=== PATIENT | female | born 1960 | race Caucasian/White ===

== ENCOUNTER → 2019-08-06 14:06 | Outpatient (CLI) | payer BC, SELFPAY ==
--- NOTE | ~2019-08-06 | XR_ITS ---
EXAMINATION: XR ribs BI 3V w CXR 2V EXAM DATE: 08/06/2019 15:46 INDICATION: Posterior rib pain bilaterally for one day. Shortness of breath intermittently for one mo nth. TECHNIQUE: Frontal projection of the upper left ribs, frontal projection of the lower left ribs, obli que projection of the left ribs. Frontal projection of the upper right ribs, frontal projection of t he lower right ribs, oblique projection of the right ribs, frontal and lateral chest x-ray(s) for int erpretation. Comparison is made to prior examination from 02/27/2019. FINDINGS: There are no displaced acute rib fractures identified. There are no osteoblastic or osteoly tic lesions identified. No confluent consolidation, pneumothorax or pleural effusion suspected. Card iomediastinal silhouette is normal. Mild hyperinflation. There is a wire-like foreign body measuring about 1 cm in length, appears to be in the midline subcut aneous tissues near the xiphoid. This is unchanged compared to prior study. IMPRESSION: Small incidental wire-like foreign body. Otherwise unremarkable exam. Reviewed, dictated and finalized at location A.
== END ==
PROVIDERS: PCP Family Medicine; Visit Provider Family Medicine
DX: R52 Pain, unspecified (principal)
CPT/HCPCS: 71046; 71110

== ENCOUNTER → 2020-01-16 11:45 | Outpatient (CLI) | payer BC, SELFPAY ==
--- NOTE | ~2020-01-16 | XR_ITS ---
EXAMINATION: XR hand LT 2V, XR hand RT 2V DATE: 01/16/2020 12:09 INDICATION: Polyarthralgia and erythema at the joints of the bilateral hands. TECHNIQUE: 1. Posteroanterior and lateral views of the left hand were obtained. 2. Posteroanterior and lateral views of the right hand were obtained. 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 Bone alignment is otherwise n ormal at both hands and wrists. No acute fracture. Mild osteoarthritis at the bilateral first interph alangeal and right fifth distal interphalangeal joints. Remaining joint spaces are relatively preserv ed. No erosions to suggest an inflammatory arthritis. There is soft tissue swelling about several of the bilateral proximal interphalangeal joints as well as the at the radial aspect of the left second metacarpophalangeal joint. IMPRESSION: 1. Mild osteoarthritis at the bilateral first interphalangeal and right fifth distal interphalangeal joints. No erosions to suggest an inflammatory arthritis. Reviewed, dictated and finalized at location B. IMPRESSION: 1. Mild osteoarthritis at the bilateral first interphalangeal and right fifth d istal interphalangeal joints. No erosions to suggest an inflammatory arthritis.
== END ==
PROVIDERS: PCP Family Medicine; Visit Provider Internal Medicine Rheumatology
DX: R53.83 Other fatigue (principal); R70.0 Elevated erythrocyte sedimentation rate; M19.042 Primary osteoarthritis, left hand; M19.041 Primary osteoarthritis, right hand
CPT/HCPCS: 73120

== ENCOUNTER 2022-01-25 13:50 | Outpatient (CLI) | payer OTHER, SELFPAY ==
--- NOTE | ~2022-01-25 | US_ITS ---
US abdomen limited INDICATION: Right upper quadrant pain. Jaundice. PROCEDURE: Realtime right upper abdominal ultrasound. COMPARISON: No prior studies for comparison. FINDINGS: The pancreas is normal without focal mass or pancreatic ductal dilation. Liver echotexture is normal without focal mass or intrahepatic biliary dilatation. There is normal directional flow i n the portal vein. The gallbladder is normal without stones, gallbladder wall thickening or pericholecystic fluid. Comm on bile duct measures 3 mm. No sonographic Wiggins's sign. IMPRESSION: 1: Normal limited abdominal ultrasound. Reviewed, dictated and finalized at location B.
== END 2022-01-25 13:51 | disposition home or self-care (01) ==
PROVIDERS: PCP Emergency Medicine; Visit Provider Emergency Medicine
DX: R17 Unspecified jaundice (principal)
CPT/HCPCS: 76705

== ENCOUNTER 2022-03-01 15:14 | Outpatient (CLI) | payer OTHER, SELFPAY ==
[2022-03-06 09:31] LABS: Vitamin B2 27.9 nmol/L (6.2-39.0)
== END 2022-03-01 15:15 | disposition home or self-care (01) ==
LOC: ANHGOSHLAB 15:15
PROVIDERS: PCP Emergency Medicine; Visit Provider Emergency Medicine
DX: D53.9 Nutritional anemia, unspecified (principal); K13.0 Diseases of lips
CPT/HCPCS: 36415; 82607; 84252

== ENCOUNTER 2022-04-21 14:05 | Outpatient (CLI) | payer OTHER, SELFPAY ==
--- NOTE | ~2022-04-21 | MM_ITS ---
EXAMINATION: MM screening [facility] BI w gab HISTORY: Screening mammogram TECHNIQUE: Craniocaudal and mediolateral oblique 3-D tomosynthesis images were obtained and synthetic 2-D images were generated. CAD analysis was submitted and interpreted. COMPARISON: 08/30/2018 11/14/2014, 05/25/2013 BREAST PARENCHYMAL COMPOSITION: The breasts are heterogeneously dense, which may obscure small masses . FINDINGS: No suspicious mass, calcification, or architectural distortion are identified in either camilo ast to suggest malignancy. There has been no suspicious interval change. IMPRESSION: 1. No mammographic evidence of malignancy. 2. Recommend routine screening mammography in one year. BI-RADS Category 1: Negative Reviewed, dictated and finalized at location A. 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
== END 2022-04-21 14:06 | disposition home or self-care (01) ==
PROVIDERS: PCP Emergency Medicine; Visit Provider Obstetrics & Gynecology
DX: Z12.31 Encounter for screening mammogram for malignant neoplasm of breast (principal)
CPT/HCPCS: 77063; 77067

== ENCOUNTER 2022-09-04 16:44 | Outpatient (CLI) | payer OTHER, SELFPAY ==
--- NOTE | ~2022-09-04 | XR_ITS ---
Right wrist Technique: PA, oblique, lateral, and ulnar deviation views were obtained. Clinical History: Pain COMPARISON: 01/16/2020 Findings: No acute fracture or dislocation is seen. There is chronic apparent bony bridging from the triquetrum to the pisiform, unchanged. Soft tissues are unremarkable. Impression: No acute abnormality. Chronic bony excrescence which appears to arise from triquetrum, possibly bridging to the pisiform. T his is stable from prior exam. Reviewed, dictated and finalized at location M. Impression: No acute abnormality. Chronic bony excrescence which appears to arise from triquetrum, possibly bridg ing to the pisiform. This is stable from prior exam.
== END 2022-09-04 16:45 | disposition home or self-care (01) ==
LOC: CHSIMG 16:47
PROVIDERS: PCP Emergency Medicine; Visit Provider Physician Assistant
DX: M25.531 Pain in right wrist (principal)
CPT/HCPCS: 73110

== ENCOUNTER 2022-09-17 12:32 | Outpatient (CLI) | payer OTHER, SELFPAY ==
--- NOTE | ~2022-09-17 | CT_ITS ---
EXAMINATION: CT wrist RT wo con DATE: 09/17/2022 12:52 INDICATION: Right wrist pain. TECHNIQUE: Computed tomography (CT) of the right wrist was performed without intravenous contrast. Au tomated exposure control and iterative reconstruction technique were employed. The dose-length produc t was 374.16 mGy-cm. COMPARISON: Right wrist radiographs 09/04/2022 FINDINGS: Bone alignment is normal. No acute fracture. There is heterotopic ossification distal to ul caryn styloid. There is mild osteoarthritis of radioscaphoid joint and lunotriquetral joint. There is s evere osteoarthritis of pisotriquetral joint. There is mild osteoarthritis of triscaphe joint and fir st carpometacarpal joint. There is moderate osteoarthritis of first metacarpophalangeal joint. IMPRESSION: 1. Polyarticular osteoarthritis. Reviewed, dictated and finalized at location A.
== END 2022-09-17 12:33 | disposition home or self-care (01) ==
PROVIDERS: PCP Emergency Medicine; Visit Provider Physician Assistant
DX: M25.531 Pain in right wrist (principal); M19.031 Primary osteoarthritis, right wrist
CPT/HCPCS: 73200

== ENCOUNTER 2022-11-02 14:08 | Outpatient (RCR) | payer OTHER, SELFPAY ==
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
== END 2022-11-02 19:00 | disposition home or self-care (01) ==
LOC: CHSOT 14:08
PROVIDERS: Visit Provider Plastic Surgery
DX: M62.838 Other muscle spasm (principal); M62.81 Muscle weakness (generalized)
CPT/HCPCS: 97110; 97165

== ENCOUNTER 2023-02-10 14:27 | Outpatient (CLI) | payer OTHER, SELFPAY ==
[2023-02-10 18:45] LABS: Iron 93 ug/dL (37-170)
[2023-02-10 18:55] LABS: Percent Iron Saturation 27 % (20-50)
[2023-02-16 02:25] LABS: Vitamin A 57 mcg/dL (38-98)
== END 2023-02-10 14:28 | disposition home or self-care (01) ==
LOC: ANHGOSHLAB 14:30
PROVIDERS: PCP Emergency Medicine; Visit Provider Emergency Medicine
DX: D64.9 Anemia, unspecified (principal); T45.2X1A Poisoning by vitamins, accidental (unintentional), initial encounter
CPT/HCPCS: 36415; 82728; 83540; 83550; 84590

== ENCOUNTER 2023-04-20 14:03 | Outpatient (CLI) | payer OTHER, SELFPAY ==
--- NOTE | 2023-04-20 14:30 | NEURO_ITS ---
Impression: # Complains of right forearm discomfort and pain. # Normal Nerve Conduction Study. No evidence of Carpal Tunnel Syndrome or ulnar neuropathy. # Normal needle/EMG exam. # Clinical correlation recommended. Nerve Conduction Studies Anti Sensory Summary Table Stim Site NR Peak (ms) P-T Amp (?V) Site1 Site2 Delta-P (ms) Dist (cm) Lopez (m/s) Right Median Anti Sensory (2-3nd Digit) Wrist 2.8 77.1 Wrist 2-3nd Digit 2.8 14.0 50 Wrist 3.1 77.0 Wrist 2-3nd Digit 2.8 14.0 50 Right Radial Anti Sensory (Base 1st Digit) Wrist 2.7 23.1 Wrist Base 1st Digit 2.7 0.0 Right Ulnar Anti Sensory (5th Digit) Wrist 2.9 61.7 Wrist 5th Digit 2.9 14.0 48 Motor Summary Table Stim Site NR Onset (ms) O-P Amp (mV) Site1 Site2 Delta-0 (ms) Dist (cm) Lopez (m/s) Right Median Motor (Abd Poll Brev) Wrist 3.3 3.9 Elbow Wrist 4.6 27.0 59 Elbow 7.9 3.4 Right Ulnar Motor (Abd Dig Minimi) Wrist 2.7 4.6 A Elbow Wrist 4.6 27.0 59 A Elbow 7.3 4.7 F Wave Studies NR F-Lat (ms) L-R F-Lat (ms) Right Median (Mrkrs) (Abd Poll Brev) 26.84 Right Ulnar (Mrkrs) (Abd Dig Min) 27.25 EMG Side Muscle Nerve Root Ins Act Fibs Amp Dur Recrt Comment Right 1stDorInt Ulnar C8-T1 Nml Nml Nml Nml Nml Right Ext Indicis Radial (Post Int) C7-8 Nml Nml Nml Nml Nml Right Ext Digitorum Radial (Post Int) C7-8 Nml Nml Nml Nml Nml Right BrachioRad Radial C5-6 Nml Nml Nml Nml Nml Right PronatorTeres Median C6-7 Nml Nml Nml Nml Nml Right Abd Poll Brev Median C8-T1 Nml Nml Nml Nml Nml Right Biceps Musculocut C5-6 Nml Nml Nml Nml Nml Right Brachialis Musculocut C5-6 Nml Nml Nml Nml Nml Right Triceps Radial C6-7-8 Nml Nml Nml Nml Nml MTDD
== END 2023-04-20 14:04 | disposition home or self-care (01) ==
LOC: ANHNEURO 14:05
PROVIDERS: PCP Emergency Medicine; Visit Provider Emergency Medicine
DX: M79.641 Pain in right hand (principal)
CPT/HCPCS: 95886; 95909

== ENCOUNTER 2023-05-06 14:07 | Outpatient (CLI) | payer OTHER, SELFPAY ==
--- NOTE | ~2023-05-06 | CT_ITS ---
EXAMINATION: CT abdomen wo con DATE: 05/06/2023 14:54 INDICATION: Early satiety TECHNIQUE: Computed tomography (CT) of the abdomen was performed without intravenous contrast. Automa fox exposure control and iterative reconstruction technique were employed. Exam dose: 167.89 mGy-cm total exam DLP. COMPARISON: 01/21/2022 Limited abdominal ultrasound examination, reported normal 03/21/2019 CT abdomen pelvis FINDINGS: The lung bases are clear of infiltrate or consolidation. Normal heart size. No pericardial or pleural effusion. The liver, gallbladder, bile ducts, spleen, pancreas, pancreatic duct, and adrenal glands and kidneys and urinary bladder are unremarkable. No urinary tract calculus or hydroureteronephrosis is noted. Suture lines are noted in the colon. As a prominent amount of fecal material within the colon. No bow el obstruction is evident. No intraperitoneal free air. The uterus and adnexal areas appear unremarka ble. Normal caliber of the abdominal aorta. No peritoneal or retroperitoneal or pelvic mass lesion or keshia opathy or ascites is noted. Included skeletal structures are unremarkable. IMPRESSION: Postoperative change of the colon Reviewed, dictated and finalized at Location A. Reviewed, dictated and finalized at location B. CULTURE RESEARCH DIRECTOR
== END 2023-05-06 14:08 | disposition home or self-care (01) ==
LOC: CHSIMG 14:09
PROVIDERS: PCP Emergency Medicine; Visit Provider Emergency Medicine
DX: D46.9 Myelodysplastic syndrome, unspecified (principal); R10.12 Left upper quadrant pain; R10.9 Unspecified abdominal pain; R63.4 Abnormal weight loss; R68.81 Early satiety; Z98.890 Other specified postprocedural states
CPT/HCPCS: 74150

== ENCOUNTER 2023-05-09 09:00 | Outpatient (RCR) | payer OTHER, SELFPAY ==
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
== END 2023-06-01 20:00 | disposition home or self-care (01) ==
LOC: CHSOT 09:00
PROVIDERS: PCP Emergency Medicine; Visit Provider Emergency Medicine
DX: G90.511 Complex regional pain syndrome I of right upper limb (principal)
CPT/HCPCS: 97014; 97110; 97140; 97530; G0283

== ENCOUNTER 2023-05-11 12:43 | Outpatient (CLI) | payer OTHER, SELFPAY ==
[2023-05-11 15:38] LABS: Basophils Percent Auto 0.4 % (0.2-1.2); Eosinophils Percent Auto 0.9 % (0-4.4); Hematocrit 43.4 % (37.0-47.0); Hemoglobin 14.3 g/dL (12.0-15.0); Immature Granulocyte Absolute 0.01 K/mm3 (0.00-0.031); Immature Granulocyte Percent A 0.2 % (0-0.5); Lymphocytes Absolute Auto 0.72 K/mm3 (0.9-3.2); Lymphocytes Percent Auto 15.5 % (18.3-44.2); Mean Corpuscular HGB Conc 32.9 g/dl (32-36); Mean Corpuscular Hemoglobin 33.5 pg (26-34); Mean Corpuscular Volume 101.6 fl (80-100); Monocytes Absolute Auto 0.3 K/mm3 (0.1-0.6); Monocytes Percent Auto 7.3 % (2.6-8.5); Neutrophils Absolute Auto 3.5 K/mm3 (1.3-6.7); Neutrophils Percent Auto 75.7 % (45.5-73.1); Platelet Count Result 167 k/mm3 (150-375); Red Blood Count 4.27 M/mm3 (4.2-5.4); Red Cell Distribution Width 12.7 % (11.5-14.5); White Blood Count 4.7 K/mm3 (4.5-10.0)
[2023-05-11 17:52] LABS: Iron 79 ug/dL (37-170)
[2023-05-11 18:09] LABS: Free T4 Free Thyroxine 0.89 ng/mL (0.78-2.19)
[2023-05-11 18:36] LABS: Vitamin D 25 Hydroxy 74.2 ng/mL
[2023-05-11 19:01] LABS: Alanine Aminotransferase 28 U/L (6-35); Albumin Level 4.3 g/dL (3.5-5.1); Alkaline Phosphatase 104 U/L (38-126); Anion Gap 5 mmol/L (8-16); Aspartate Amino Transferase 62 U/L (14-36); Bilirubin,Total 0.4 mg/dL (0.2-1.3); Blood Urea Nitrogen 11 mg/dL (7-17); Calcium 9.6 mg/dL (8.4-10.2); Carbon Dioxide 28 mmol/L (22-30); Chloride 105 mmol/L (98-107); Estimated Glomerular Filt Rate > 60; Glucose 96 mg/dL (65-110); Potassium 3.6 mmol/L (3.4-5.0); Sodium 138 mmol/L (137-145)
[2023-05-13 19:00] LABS: Selenium 119 mcg/L (63-160)
[2023-05-13 21:50] LABS: Iodine Serum/Plasma 62 mcg/L (52-109)
[2023-05-14 07:32] LABS: FSH 91.7 mIU/mL (***); LH 34.1 mIU/mL (***); Progesterone 0.3 ng/mL (***); Red Blood Cell Folate 536 ng/mL RBC (>280); Triiodothyronine T3 Free 3.1 pg/mL (2.3-4.2)
[2023-05-14 14:26] LABS: Vitamin A 57 mcg/dL (38-98)
[2023-05-16 13:32] LABS: Vitamin B1 6 nmol/L (8-30)
[2023-05-17 01:32] LABS: Estriol <0.10 ng/mL
[2023-05-17 14:48] LABS: Vitamin B6 6.6 ng/mL (2.1-21.7)
[2023-05-18 07:22] LABS: Testosterone Free 0.9 pg/mL (0.1-6.4); Testosterone Total 11 ng/dL (2-45)
== END 2023-05-11 12:44 | disposition home or self-care (01) ==
LOC: ANHGOSHLAB 12:46
PROVIDERS: PCP Emergency Medicine; Visit Provider Obstetrics & Gynecology
DX: Z00.00 Encounter for general adult medical examination without abnormal findings (principal)
CPT/HCPCS: 36415; 80053; 82306; 82542; 82607; 82677; 82728; 82747; 83001; 83002; 83540; 84144; 84207; 84255; 84402; 84403; 84425; 84439; 84443; 84481; 84590; 85025

== ENCOUNTER 2023-10-19 13:47 | Outpatient (CLI) | payer OTHER, SELFPAY ==
[2023-10-19 20:08] LABS: Iron 85 ug/dL (37-170)
[2023-10-19 20:10] LABS: Basophils Percent Auto 0.8 % (0.2-1.2); Eosinophils Percent Auto 1.1 % (0-4.4); Hematocrit 43.4 % (37.0-47.0); Hemoglobin 14.7 g/dL (12.0-15.0); Immature Granulocyte Absolute 0.01 K/mm3 (0.00-0.031); Immature Granulocyte Percent A 0.3 % (0-0.5); Immature Platelet Fraction Pct 14.4 % (0.9-11.2); Lymphocytes Absolute Auto 0.67 K/mm3 (0.9-3.2); Lymphocytes Percent Auto 17.8 % (18.3-44.2); Mean Corpuscular HGB Conc 33.9 g/dl (32-36); Mean Corpuscular Hemoglobin 34.8 pg (26-34); Mean Corpuscular Volume 102.6 fl (80-100); Mean Platelet Volume 13.5 fl (7.4-10.4); Monocytes Absolute Auto 0.2 K/mm3 (0.1-0.6); Monocytes Percent Auto 5.8 % (2.6-8.5); Neutrophils Absolute Auto 2.8 K/mm3 (1.3-6.7); Neutrophils Percent Auto 74.2 % (45.5-73.1); Platelet Count Result 171 k/mm3 (150-375); Red Blood Count 4.23 M/mm3 (4.2-5.4); Red Cell Distribution Width 12.5 % (11.5-14.5); White Blood Count 3.8 K/mm3 (4.5-10.0)
[2023-10-19 20:18] LABS: Percent Iron Saturation 26 % (20-50)
[2023-10-19 20:23] LABS: Alanine Aminotransferase 33 U/L (6-35); Albumin Level 4.5 g/dL (3.5-5.1); Alkaline Phosphatase 120 U/L (38-126); Anion Gap 9 mmol/L (4-12); Aspartate Amino Transferase 53 U/L (14-36); Bilirubin,Total 0.4 mg/dL (0.2-1.3); Blood Urea Nitrogen 10 mg/dL (7-17); Calcium 9.3 mg/dL (8.4-10.2); Carbon Dioxide 27 mmol/L (22-30); Chloride 102 mmol/L (98-107); Cholesterol 152 mg/dL (0-200); Estimated Glomerular Filt Rate > 60; Glucose 87 mg/dL (65-110); HDL Direct 60 mg/dL; Potassium 3.9 mmol/L (3.4-5.0); Sodium 138 mmol/L (137-145); Triglycerides 51 mg/dL (<150)
[2023-10-19 20:34] LABS: LDL Cholesterol Direct 84 mg/dL
[2023-10-19 20:40] LABS: Hemoglobin A1C 5.2 % (<5.7)
[2023-10-19 20:41] LABS: Vitamin D 25 Hydroxy 74.3 ng/mL
[2023-10-19 21:30] LABS: Folic Acid > 20.0 ng/mL (2.76->20)
[2023-10-22 05:19] LABS: Iodine Serum/Plasma 54 mcg/L (52-109)
[2023-10-23 08:23] LABS: Vitamin B1 20 nmol/L (8-30)
[2023-10-25 20:19] LABS: Vitamin A 66 mcg/dL (38-98)
[2023-10-31 17:38] LABS: Selenium 121 mcg/L (63-160)
== END 2023-10-19 13:48 | disposition home or self-care (01) ==
LOC: ANHGOSHLAB 13:50
PROVIDERS: PCP Emergency Medicine; Visit Provider Nurse Practitioner Family
DX: E51.9 Thiamine deficiency, unspecified (principal); R74.8 Abnormal levels of other serum enzymes; E55.9 Vitamin D deficiency, unspecified; R73.9 Hyperglycemia, unspecified; R94.6 Abnormal results of thyroid function studies; I95.9 Hypotension, unspecified; G90.511 Complex regional pain syndrome I of right upper limb; D51.3 Other dietary vitamin B12 deficiency anemia
CPT/HCPCS: 36415; 80053; 80061; 82306; 82542; 82607; 82728; 82746; 83036; 83540; 83550; 84255; 84425; 84590; 85025; 85055

== ENCOUNTER 2024-08-02 13:13 | Outpatient (CLI) | payer OTHER, SELFPAY ==
--- OUTSIDE RECORDS SUMMARY | 2024-08-02 14:18 | XMS_ITS | Encounter Summary ---
Author Organization [facility] Address [address] [place] [address] Phone Care Team Providers Care Food Processor Name Role Phone Gumaro Thomason MD Primary Care Provider [phone] Shanna Camacho MD Unavailable [phone] Juan Rivera MD Unavailable Jeffery Beal MD Primary Care Provider [phone] Encounter Details Date Type Department Care Team (Latest Contact Info) Description 11/03/2018 Orders Only [facility] Scanning, Provider Social History Tobacco Use Types Packs/Day Years Used Date Smoking Tobacco: Never Smokeless Tobacco: Never Alcohol Use Standard Drinks/Week Comments No 0 (1 standard drink = 0.6 oz pur e alcohol) Comments Unknown Sex and Gender Information Value Date Recorded Sex Assigned at Not on file 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 Gender Identity Not on file Sexual Orientation Not on file documented as of this encounter Plan of Treatment Not on file documented as of this encounter Procedures Procedure Name Priority Date/Time Associated Diagnosis Comments SCAN - RADIOLOGY/IMAGING 11/03/2018 documented in this encounter Results * SCAN - RADIOLOGY/IMAGING (11/03/2018) Anatomical Region Laterality Modality Other us Provider Scanning Final Result documented in this encounter Visit Diagnoses Not on filedocumented in this encounter Care Teams Food Processor Relationship Specialty Start Date End Date Gumaro Thomason MD [address] [place], [facility] PCP - General 06/19/09 05/08/23 Jeffery Beal MD [address] [place] [address] [place] [address] PCP - General Family Medicine 05/09/23 Shanna Camacho MD [address] [place], [place] [id number] Referring Physician Endocrinology Diabetes & Metabolism 03/27/18 Juan Rivera MD [address] [place], [place] [id number] Medical Oncologist/Hematologis t Medical Oncology 03/27/18 documented as of this encounter
--- OUTSIDE RECORDS SUMMARY | 2024-08-02 14:18 | XMS_ITS | Encounter Summary ---
Author Organization [facility] Address [address] [place] [address] Care Team Providers Care Vegetable Farmworker Name Role Phone Gumaro Thomason MD Primary Care Provider [phone] Encounter Details Date Type Department Care Team (Late st Contact Info) Description 01/16/2020 Telephone [facility] [address] [place], [place] [id number] Lucille Flores MD [address] [address] Social History Tobacco Use Types Packs/Day Years Used Date Smoking Tobacco: Never Alcohol Use Standard Drinks/Week Comments Never 0 (1 standard drink = 0.6 oz pur e alcohol) AUDIT-C Answer Date Recorded Q1: How often do you have a drink containing alc ohol? 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
--- OUTSIDE RECORDS SUMMARY | 2024-08-02 14:18 | XMS_ITS | Encounter Summary ---
Author Organization [facility] Address [address] [address] [place] [address] Care Team Providers Care Repairer Recreational Vehicle Name Role Phone Gumaro Thomason MD Primary Care Provider [phone] Encounter Details Date Type Department Care Team (Late st Contact Info) Description 03/05/2021 Telephone [facility] [place] [place] [address] [place] [address] Lucille Flores MD [address] [place] [address] Social History Tobacco Use Types [...] on file Legal Sex Female 5:45 PM FINANCIAL REPORTING DIRECTOR Gender Identity Not on file Sexual Orientation Not on file documented as of this encounter Patient Instructions * Patient Instructions* Earl Mindy - 03/05/2021 9:46 AM FINANCIAL REPORTING DIRECTOR Pt is calling to inform Dr Flores that [facility] sent her labs over this morning , and is hoping that she can give her a call about the results . NCIAL REPORTING DIRECTOR documented in this encounter Plan of Treatment Not on file documented as of this encounter Visit Diagnoses Not on filedocumented in this encounter Care Teams Repairer Recreational Vehicle Relationship Specialty Start Date End Date Gumaro Thomason MD [address] [place] [address] PCP - General 04/02/19 documented as of this encounter
--- OUTSIDE RECORDS SUMMARY | 2024-08-02 14:18 | XMS_ITS | Encounter Summary ---
Author Organization [facility] Address [address] [place] [address] Phone Care Team Providers Care Ultimate Hoops Trainer Name Role Phone Gumaro Thomason MD Primary Care Provider [phone] Shanna Camacho MD Unavailable [phone] Juan Rivera MD Unavailable Jeffery Beal MD Primary Care Provider [phone] Encounter Details Date Type Department Care Team (Latest Contact Info) Description 10/25/2018 Orders Only [facility] Scanning, Provider Social History Tobacco Use Types Packs/Day Years Used Date Smoking Tobacco: Never Smokeless Tobacco: Never Alcohol Use Standard Drinks/Week Comments No 0 (1 standard drink = 0.6 oz pur e alcohol) Comments Unknown Sex and Gender Information Value Date Recorded Sex Assigned at Not on file 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 Gender Identity Not on file Sexual Orientation Not on file documented as of this encounter Plan of Treatment Not on file documented as of this encounter Procedures Procedure Name Priority Date/Time Associated Diagnosis Comments SCAN - RADIOLOGY/IMAGING 10/25/2018 documented in this encounter Results * SCAN - RADIOLOGY/IMAGING (10/25/2018) Anatomical Region Laterality Modality Other us Provider Scanning Final Result documented in this encounter Visit Diagnoses Not on filedocumented in this encounter Care Teams Ultimate Hoops Trainer Relationship Specialty Start Date End Date Gumaro Thomason MD [address] [place], [facility] PCP - General 06/19/09 05/08/23 Jeffery Beal MD [address] [place] [address] [place] [address] PCP - General Family Medicine 05/09/23 Shanna Camacho MD [address] [place], [place] [id number] Referring Physician Endocrinology Diabetes & Metabolism 03/27/18 Juan Rivera MD [address] [place], [place] [id number] Medical Oncologist/Hematologis t Medical Oncology 03/27/18 documented as of this encounter
--- OUTSIDE RECORDS SUMMARY | 2024-08-02 14:18 | XMS_ITS | Clinical Summary ---
Author Organization [facility] Address [address] [place] [address] Care Team Providers Care Electric Motor Winder Name Role Phone Gumaro Thomason MD Primary Care Provider [phone] Source Comments [facility] Affiliates and Associated Physician Practices is amultiple site organization consisting of ambulatory clinics and hospital sitesin [place], [place], [place] and [place]. This disclosure is being madepursuant to the Care Everywhere program and may not contain all information available regarding this patient. Last updated 17.[facility] Allergies Active Allergy Reactions Criticality Noted Date Comments Adhesive Sensitivity Rash,Itching Medium 07/30/2019 Iodine Other,Rash Medium 07/28/2020 Reaction: Hives, Skin Rash, Latex Rash Medium 07/30/2019 Prednisone Other 07/30/2019 Flushing of the face Shellfish Allergy Other 07/30/2019 Unknown Medications * Be aware that medications may not be up to date on this document. Alwaysverify current medications with the patient. estradiol-noret hindrone (ACTIVELLA) 1-0.5 MG tablet Take 1 tablet by mouth once daily Active doxycycline hyclate (VIBRAMYCIN) 100 MG tabletIndicatio ns:Acne Vulgaris Take 100 mg by mouth at bedtime Reasons: Common Acne Active levocetirizine (XYZAL) 5 MG tablet Take 2.5 mg by mouth once daily Active Evening Liberty Oil 500 MG Take 1 tablet by mouth Active Blood Glucose Monitoring Suppl (ActivePathTOUCH VERIO) w/Device KIT U UTD TO TEST BLOOD GLUCOSE LEVEL TID 9 Active OneTouch Delica Lancets 33G MISC USE UTD TO TEST TID 9 Active REFISSA 0.05 % cream APPLY TOPICALLY UTD QHS 0 Active diclofenac sodium (VOLTAREN) 1 % gel Apply 2 (two) g to affected area 4 times daily 2 gm amount for elbow, wrist or hand 4 gm amount for knee, ankle or foot 100 g 2 1 Active Active Problems Problem Noted Date Diagnosed Date Rectal bleeding 09/05/2019 Family History Medical History Relation Name Comments COPD - Chronic Obstructive Pulmonary Disease Father Hypertension Mother Relation Name Status Comments Father Mother Social History Tobacco Use Types Packs/Day Years [...] on file 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 Gender Identity Not on file Sexual Orientation Not on file Last Filed Vital Signs Vital Sign Reading Time Taken Comments Blood Pressure 101/54 09/05/2019 11:53 AM CDT Pulse 95 09/05/2019 11:53 AM CDT Temperature 36.7 C (98 F) 09/05/2019 11:23 AM CDT Respiratory Rate 12 09/05/2019 11:53 AM CDT Oxygen Saturation 99% 09/05/2019 11:53 AM CDT Inhaled Oxygen Concentration - - Weight 44.9 kg (99 lb) 09/05/2019 10:03 AM CDT Height 157 cm (5' 1.81 ) 09/05/2019 10:03 AM CDT Body Mass Index 18.22 09/05/2019 10:03 AM CDT Plan of Treatment Health Maintenance Due Date Last Done Comments COLOGUARD (AGES 45-75) - COL ON CA SCREENING 1960 CT COLONOGRAPHY - COLON CA SCREENING 1960 FIT - COLON CA SCREENING 1960 FLEX SIG - COLON CA SCREENING 1960 LIPID TESTING 1960 MAMMOGRAM 1960 HIV SCREENING 09/19/1975 DTAP/TDAP/TD VACCINES (1 - Tdap) 09/19/1979 PNEUMOCOCCAL VACCINE 50+ (1 of 1 - PCV) 2010 ZOSTER VACCINE (1 of 2) 2010 COVID-19 VACCINE (1 - 2023-2 5 season) 2023 DEPRESSION SCREENING 04/04/2024 INFLUENZA VACCINE (Season Ended) 2024 COLON MONITORING 09/04/2029 09/05/2019, 09/05/2019 COLONOSCOPY - COLON CA SCREENING 09/04/2029 09/05/2019, 09/05/2019 Colorectal Cancer Screening 09/04/2029 Respiratory Syncytial Virus (RSV) Vaccine Pt: or over 60 yrs (1 - 1-dose 75+ series) 09/19/2035 HEPATITIS C SCREENING Completed 01/16/2020 HEPATITIS B VACCINE Aged Out No longe r eligible based on patient's age to complete this topic HIB VACCINE Aged Out No longer eligi ble based on patient's age to complete this topic HPV VACCINE Aged Out No longer eligi ble based on patient's age to complete this topic MENINGOCOCCAL (Group B) VACCINE SHARED DECISION-MAKING Aged Out No longer eligible based on patient's age to complete this topic MENINGOCOCCAL GROUPS A/C/Y/W VACCINE Aged Out No longer eligible b ased on patient's age to complete this topic Procedures Procedure Name Priority Date/Time Associated Diagnosis Comments HEPATITIS C AB W/RFLX TO HCV RNA QN PCR 01/16/2020 11:17 AM CDT ENDOSCOPY, COLON, DIAGNOSTIC Routine 09/05/2019 10:01 AM CDT from Last 3 Months or Most Recently Relevant to Health Maintenance Results * HEPATITIS C AB W/RFLX TO HCV RNA QN PCR (01/16/2020 11:17 AM CDT) Hepatitis C Antibody NON-REACTI VE NON-REACT JONNA QUEST Signal to Cut-Off 0.01 <1.00 QUEST Comment: HCV antibody was non-reactive. There is no laboratory evidence of HCV infection. In most cases, no further action is required. However, if recent HCV exposure is suspected, a test for HCV RNA (test code 32439) is suggested. For additional information please refer to http://education.Intucell/faq/HBG16z7 (This link is being provided for informational/ educational purposes only.) Test Performed at: [facility] [id number] [facility] [place] [address] MANDY WORLEY DO,MPH 01/16/2020 11:1 7 AM CDT 01/16/2020 11:25 AM CDT us Lucille Flores MD LAB - CHEMISTRY AUDELIA JONES Final Result [facility] [address] [place] [address] * ENDOSCOPY, COLON, DIAGNOSTIC (09/05/2019 10:01 AM CDT) Report Endoscopy POC Endoscopy Department Report _ Patient Name: Shantell Blake Procedure Date: 09/05/2019 10:01 AM Date of : 1960 Classification: Outpatient Gender: Female Ethnicity: Not or Race: White _ Providers: Karen Salas MD Referring MD: Roland Thomason MD (Referring MD) Procedure: Colonoscopy Indications: Melena, Iron deficiency anemia Medications: Monitored Anesthesia Care Description of Procedure: Pre-Anesthesia Assessment: - Prior to the procedure, a History and Physical was performed, and patient medications and allergies were reviewed. The patient's tolerance of previous anesthesia was also reviewed. The risks and benefits of the procedure and the sedation options and risks were discussed with the patient. All questions were answered, and informed consent was obtained. Prior Anticoagulants: The patient has taken no previous anticoagulant or antiplatelet agents. ASA Grade Assessment: II - A patient with mild systemic disease. After reviewing the risks and benefits, the patient was deemed in satisfactory condition to undergo the procedure. After I obtained informed consent, the scope was passed under direct vision. Throughout the procedure, the patient's blood pressure, pulse, and oxygen saturations were monitored continuously. The [id number] was introduced through the anus and advanced to the cecum, identified by appendiceal orifice and ileocecal valve. The colonoscopy was performed without difficulty. The patient tolerated the procedure well. The quality of the bowel preparation was evaluated using the BBPS ([place] Bowel Preparation Scale) with scores of: Right Colon = 2 (minor amount of residual staining, small fragments of stool and/or opaque liquid, but mucosa seen well), Transverse Colon = 2 (minor amount of residual staining, small fragments of stool and/or opaque liquid, but mucosa seen well) and Left Colon = 3 (entire mucosa seen well with no residual staining, small fragments of stool or opaque liquid). The total BBPS score equals 7. The quality of the bowel preparation was good. The ileocecal valve, appendiceal orifice, and rectum were photographed. Findings: The perianal and digital rectal examinations were normal. Two diverticula were found in the recto-sigmoid colon. The exam was otherwise without abnormality on direct and retroflexion views. Estimated Blood Loss: Estimated blood loss was minimal. Complications: No immediate complications. Impression: - Diverticulosis in the recto-sigmoid colon. - The examination was otherwise normal on direct and retroflexion views. - No specimens collected. Recommendation: - Patient has a contact number available for emergencies. The signs and symptoms of potential delayed complications were discussed with the patient. Return to normal activities tomorrow. Written discharge instructions were provided to the patient. - Resume previous diet. - Continue present medications. - Repeat colonoscopy in 10 years for surveillance. - Return to GI clinic as previously scheduled. Attending Participation: I personally performed the entire procedure. Procedure Code(s): --- Professional --- 76593, Colonoscopy, flexible; diagnostic, including collection of specimen(s) by brushing or washing, when performed (separate procedure) Diagnosis Code(s): --- Professional --- K92.1, Melena (includes Hematochezia) D50.9, Iron deficiency anemia, unspecified K57.30, Diverticulosis of large intestine without perforation or abscess without bleeding CPT copyright 2016 [employer] [place] [employer]. All rights reserved. The codes documented in this report are preliminary and upon electrical assembler review may be revised to meet current compliance requirements. ____ Karen Salas MD 09/05/2019 11:27:02 AM This report has been signed electronically. Note Initiated On: 09/05/2019 10:01 AM Number of Addenda: 0 [facility] [address] [facility] [place] [address] [facility] PROVATION 09/05/2019 10:0 1 AM CDT Karen Salas MD GI PROCEDURE ORDERABLES Ed ited Result - Final [facility] [employer]ATION from Last 3 Months or Most Recently Relevant to Health Maintenance Insurance [facility] Care Teams Electric Motor Winder Relationship Specialty Start Date End Date Gumaro Thomason MD [address] [place] [id number] PCP - General 04/02/19
--- OUTSIDE RECORDS SUMMARY | 2024-08-02 14:18 | XMS_ITS | Encounter Summary ---
Author Organization [facility] Address [address] [place] [address] Phone Care Team Providers Care Dirt Contractor Name Role Phone Gumaro Thomason MD Primary Care Provider [phone] Shanna Camacho MD Unavailable [phone] Juan Rivera MD Unavailable Jeffery Beal MD Primary Care Provider [phone] Encounter Details Date Type Department Care Team (Latest Contact Info) Description 06/03/2021 Orders Only [facility] Scanning, Provider Social History Tobacco Use Types Packs/Day Years Used Date Smoking Tobacco: Never Smokeless Tobacco: Never Alcohol Use Standard Drinks/Week Comments No 0 (1 standard drink = 0.6 oz pur e alcohol) PHQ-2 Answer Date Recorded PHQ-2 Score 0 04/24/2019 Comments Unknown Sex and Gender Information Value Date Recorded Sex Assigned at Not on file 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 Gender Identity Not on file Sexual Orientation Not on file documented as of this encounter Plan of Treatment Not on file documented as of this encounter Procedures Procedure Name Priority Date/Time Associated Diagnosis Comments SCAN - LABS 06/03/2021 documented in this encounter Results * SCAN - LABS (06/03/2021) us Provider Scanning Final Result documented in this encounter Visit Diagnoses Not on filedocumented in this encounter Care Teams Dirt Contractor Relationship Specialty Start Date End Date Gumaro Thomason MD [address] [place] [address] PCP - General 06/19/09 05/08/23 Jeffery Beal MD [address] [place] [address] [place] [address] PCP - General Family Medicine 05/09/23 Shanna Camacho MD [address] [place] [address] [address] [place], [place] [id number] Referring Physician Endocrinology Diabetes & Metabolism 03/27/18 Juan Rivera MD [address] [place] [address] [address] [place], [place] [id number] Medical Oncologist/Hematologis t Medical Oncology 03/27/18 documented as of this encounter
--- OUTSIDE RECORDS SUMMARY | 2024-08-02 14:18 | XMS_ITS | Referral Summary ---
Author Organization [facility] Address [address] [facility] [place] [address] Care Team Providers Care Drying Machine Tender Name Role Phone Shanna Camacho MD Unavailable [phone] Juan Rivera MD Unavailable Jeffery Beal MD Primary Care Provider [phone] Encounters Date Type Department Care Team Description 07/27/2024 Telephone [facility] Marrow Transplant [address] [place] [address] Bianca Morgan V. 06/08/2024 Telephone [facility] Trans[facility] [address] [place] [address] Indira Schulte RMA from Last 3 Months Allergies Active Allergy Reactions Criticality Noted Date Comments Iodine Hives,Rash Reaction: Hives, Skin Rash, Latex Rash Medium 07/30/2019 Prednisone Nausea & Vomiting Low 07/30/2019 Flushing of the face Shrimp Unknown 01/09/2010 Medications ACTIVELLA 1-0.5 mg per tablet TK 1 T PO DAILY 2 01/10/2018 Active levocetirizine (XYZAL) 5 mg tablet 2.5 mg Active levothyroxine (SYNTHROID) 25 mcg tablet Take 1 tablet (25 mcg total) by mouth daily 30 tablet 3 07/01/2020 Active calcium carb-vit D3-magnesium 250-200-125 mg-unit-mg capsule Take by mouth Active Active Problems Problem Noted Date Diagnosed Date Hair loss 04/24/2019 Assessment & Plan (04/24/2019 4:11 PM DRESSING MACHINE OPERATOR): Of unclear etiology, seems to be very mild, without any other clear evidence or symptoms of hyperandrogenism set for mild, facial acne I don't see clear evidence of eyebrows or eyelashes loss With some mild acne, not very visible at this time Will check androgen levels including DHEA, DHEA-S and testosterone levels Also recheck thyroid function test Should the above tests be normal no further endocrine assessment will be indicated Anemia 08/18/2013 Overview (07/08/2016): ANEMIA NOS Goiter 08/18/2013 Overview (07/08/2016): GOITER NOS Assessment & Plan (04/24/2019 4:05 PM DRESSING MACHINE OPERATOR): Thyroid ultrasound done today showing very normal-sized thyroid gland, with very normal echogenicity Social History Tobacco Use Types Packs/Day Years Used Date Smoking Tobacco: Never Smokeless Tobacco: Never Alcohol Use Standard Drinks/Week Comments No 0 (1 standard drink = 0.6 oz pur e alcohol) PHQ-2 Answer Date Recorded PHQ-2 Score 0 04/24/2019 Comments Unknown Sex and Gender Information Value Date Recorded Sex Assigned at Not on file Legal Sex Female 12:39 AM DRESSING MACHINE OPERATOR Gender Identity Not on file Sexual Orientation Not on file Last Filed Vital Signs Vital Sign Reading Time Taken Comments Blood Pressure 90/58 04/24/2019 1:31 PM DRESSING MACHINE OPERATOR Pulse 86 04/24/2019 1:31 PM DRESSING MACHINE OPERATOR Temperature 36.7 C (98.1 F) 03/20/2019 1:51 PM DRESSING MACHINE OPERATOR Respiratory Rate 16 04/24/2019 1:31 PM DRESSING MACHINE OPERATOR Oxygen Saturation 100% 03/20/2019 1:51 PM DRESSING MACHINE OPERATOR Inhaled Oxygen Concentration - - Weight 41.3 kg (91 lb) 11/04/2021 12:04 PM CDT Height 154.9 cm (5' 1 ) 11/04/2021 12:04 PM CDT Body Mass Index 17.19 11/04/2021 12:04 PM CDT Plan of Treatment Not on file Insurance [facility] Care Teams Drying Machine Tender Relationship Specialty Start Date End Date Jeffery Beal MD [address] [place] [address] [place] [address] PCP - General Family Medicine 05/09/23 Shanna Camacho MD [address] [place] [address] [address] [place] [address] Referring Physician Endocrinology Diabetes & Metabolism 03/27/18 Juan Rivera MD [address] [facility] [address] [place] [address] Medical Oncologist/Hematologis t Medical Oncology 03/27/18
--- OUTSIDE RECORDS SUMMARY | 2024-08-02 14:18 | XMS_ITS | Encounter Summary ---
Author Organization [facility] Address [address] [place] [address] Phone Care Team Providers Care Nutrition Representative Name Role Phone Gumaro Thomason MD Primary Care Provider [phone] Shanna Camacho MD Unavailable [phone] Juan Rivera MD Unavailable Jeffery Beal MD Primary Care Provider [phone] Encounter Details Date Type Department Care Team (Latest Contact Info) Description 09/23/2018 Orders Only [facility] Scanning, Provider Social History Tobacco Use Types Packs/Day Years Used Date Smoking Tobacco: Never Smokeless Tobacco: Never Alcohol Use Standard Drinks/Week Comments No 0 (1 standard drink = 0.6 oz pur e alcohol) Comments Unknown Sex and Gender Information Value Date Recorded Sex Assigned at Not on file 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 Gender Identity Not on file Sexual Orientation Not on file documented as of this encounter Plan of Treatment Not on file documented as of this encounter Procedures Procedure Name Priority Date/Time Associated Diagnosis Comments SCAN - RADIOLOGY/IMAGING 09/23/2018 documented in this encounter Results * SCAN - RADIOLOGY/IMAGING (09/23/2018) Anatomical Region Laterality Modality Other us Provider Scanning Final Result documented in this encounter Visit Diagnoses Not on filedocumented in this encounter Care Teams Nutrition Representative Relationship Specialty Start Date End Date Gumaro Thomason MD [address], [facility] PCP - General 06/19/09 05/08/23 Jeffery Beal MD [address] [place] [address] [place] [address] PCP - General Family Medicine 05/09/23 Shanna Camacho MD [address] [facility] [address] [place], [place] [id number] Referring Physician Endocrinology Diabetes & Metabolism 03/27/18 Juan Rivera MD [address] [facility] [address] [place], [place] [phone] Medical Oncologist/Hematologis t Medical Oncology 03/27/18 documented as of this encounter
--- OUTSIDE RECORDS SUMMARY | 2024-08-02 14:18 | XMS_ITS | Encounter Summary ---
Author Organization [facility] Address [address] [place] [address] Phone Care Team Providers Care Network Applications Specialist Name Role Phone Gumaro Thomason MD Primary Care Provider [phone] Shanna Camacho MD Unavailable [phone] Juan Rivera MD Unavailable Jeffery Beal MD Primary Care Provider [phone] Encounter Details Date Type Department Care Team (Latest Contact Info) Description 09/30/2018 Orders Only [facility] Scanning, Provider Social History Tobacco Use Types Packs/Day Years Used Date Smoking Tobacco: Never Smokeless Tobacco: Never Alcohol Use Standard Drinks/Week Comments No 0 (1 standard drink = 0.6 oz pur e alcohol) Comments Unknown Sex and Gender Information Value Date Recorded Sex Assigned at Not on file 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 Gender Identity Not on file Sexual Orientation Not on file documented as of this encounter Plan of Treatment Not on file documented as of this encounter Procedures Procedure Name Priority Date/Time Associated Diagnosis Comments SCAN - RADIOLOGY/IMAGING 09/30/2018 documented in this encounter Results * SCAN - RADIOLOGY/IMAGING (09/30/2018) Anatomical Region Laterality Modality Other us Provider Scanning Final Result documented in this encounter Visit Diagnoses Not on filedocumented in this encounter Care Teams Network Applications Specialist Relationship Specialty Start Date End Date Gumaro Thomason MD [address]ee [place], [facility] PCP - General 06/19/09 05/08/23 Jeffery Beal MD [address] [place] [address] [place] [address] PCP - General Family Medicine 05/09/23 Shanna Camacho MD [address] [facility] [address] [place], [place] [id number] Referring Physician Endocrinology Diabetes & Metabolism 03/27/18 Juan Rivera MD [address] [facility] [address] [place], [place] [phone] Medical Oncologist/Hematologis t Medical Oncology 03/27/18 documented as of this encounter
--- OUTSIDE RECORDS SUMMARY | 2024-08-02 14:18 | XMS_ITS | Clinical Summary ---
Author Organization [facility] Address [address] [place] [address] Care Team Providers Care Automobile Radiator Mechanic Name Role Phone Shanna Camacho MD Unavailable [phone] Juan Rivera MD Unavailable Jeffery Beal MD Primary Care Provider [phone] Allergies Active Allergy Reactions Criticality Noted Date [...] 04/24/2019 Assessment & Plan (04/24/2019 4:11 PM PALM AND BACK FORGER): Of unclear etiology, seems to be very [...] NOS Assessment & Plan (04/24/2019 4:05 PM PALM AND BACK FORGER): Thyroid ultrasound done today showing very normal-sized thyroid gland, with very normal echogenicity Encounters Date Type Department Care Team Description 07/27/2024 Telephone [facility] Transplant [address] [place] [address] [address] [place] [address] Bianca Morgan V. 06/08/2024 Telephone [facility] [address] [place] [address] [address] [place] [address] Indira Schulte RMA from Last 3 Months Surgical History Surgery Date Site/Laterality Comments APPENDECTOMY Appendectomy SECTION section Medical History Medical History Date Comments Anemia Anemia Joint pain Skin change Hot flashes Family History Medical History Relation Name Comments Hypertension Mother Hypertension; Osteoporosis Mother Diabetes type II Mother's Sister Diabetes -Type 2; Thyroid disease Other Family histo ry of Thyroid disease; Relation Name Status Comments Mother Mother's Sister Other Social History Tobacco Use Types Packs/Day Years Used Date Smoking Tobacco: Never Smokeless Tobacco: Never Alcohol Use Standard Drinks/Week Comments No 0 (1 standard drink = 0.6 oz pur e alcohol) PHQ-2 Answer Date Recorded PHQ-2 Score 0 04/24/2019 Comments Unknown Sex and Gender Information Value Date Recorded Sex Assigned at Not on file Legal Sex Female 12:39 AM PALM AND BACK FORGER Gender Identity Not on file Sexual Orientation Not on file Obstetrics History Last Filed Vital Signs Vital Sign Reading Time Taken Comments Blood Pressure 90/58 04/24/2019 1:31 PM PALM AND BACK FORGER Pulse 86 04/24/2019 1:31 PM PALM AND BACK FORGER Temperature 36.7 C (98.1 F) 03/20/2019 1:51 PM PALM AND BACK FORGER Respiratory Rate 16 04/24/2019 1:31 PM PALM AND BACK FORGER Oxygen Saturation 100% 03/20/2019 1:51 PM PALM AND BACK FORGER Inhaled Oxygen Concentration - - Weight 41.3 kg (91 lb) 11/04/2021 12:04 PM CDT Height 154.9 cm (5' 1 ) 11/04/2021 12:04 PM CDT Body Mass Index 17.19 11/04/2021 12:04 PM CDT Plan of Treatment Health Maintenance Due Date Last Done Comments Breast Cancer Screening-Mammogram 1960 Cervical Cancer Screening 1960 Colon Cancer Screening-Colonoscopy 1960 Hepatitis C Screening 1960 DTaP/Tdap/Td Vaccine (1 - Tdap) 09/19/1971 Hepatitis B Screening 1978 Regular Well Visit/Exam 18-64 1978 Zoster Vaccine (1 of 2) 2010 Depression Screening 04/24/2020 04/24/2019 Influenza Vaccine (Season Ended) 2024 Pneumococcal vaccine <65 Aged Out No longer eligible based on patient's age to complete this topic Insurance [employer] [facility] Care Teams Automobile Radiator Mechanic Relationship Specialty Start Date End Date Jeffery Beal MD [facility] [place] [address] PCP - General Family Medicine 05/09/23 Shanna Camacho MD [address] [place] [address] [address] [place] [address] Referring Physician Endocrinology Diabetes & Metabolism 03/27/18 Juan Rivera MD [address] [place] [address] [address] [place] [address] Medical Oncologist/Hematologis t Medical Oncology 03/27/18
--- OUTSIDE RECORDS SUMMARY | 2024-08-02 14:18 | XMS_ITS | Encounter Summary ---
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 Gender Identity Not on file Sexual Orientation Not on file documented as of this encounter Plan of Treatment Not on file documented as of this encounter Procedures Procedure Name Priority Date/Time Associated Diagnosis Comments SCAN - LABS 10/19/2023 documented in this encounter Results * SCAN - LABS (10/19/2023) us Provider Scanning Final Result documented in this encounter Visit Diagnoses Not on filedocumented in this encounter Care Teams Cutter Operator Helper Relationship Specialty Start Date End Date Jeffery Beal MD [address] [place] [address] PCP - General Family Medicine 05/09/23 Shanna Camacho MD [address] [place] [address] Referring Physician Endocrinology Diabetes & Metabolism 03/27/18 Juan Rivera MD [address] [place] [address] Medical Oncologist/Hematologis t Medical Oncology 03/27/18 documented as of this encounter
--- OUTSIDE RECORDS SUMMARY | 2024-08-02 14:19 | XMS_ITS | Encounter Summary ---
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 Gender Identity Not on file Sexual Orientation Not on file documented as of this encounter Plan of Treatment Not on file documented as of this encounter Procedures Procedure Name Priority Date/Time Associated Diagnosis Comments SCAN - LABS 06/05/2019 documented in this encounter Results * SCAN - LABS (06/05/2019) us Provider Scanning Final Result documented in this encounter Visit Diagnoses Not on filedocumented in this encounter Care Teams Chemical Handler Relationship Specialty Start Date End Date Gumaro Thomason MD [address] [place] [address] PCP - General 06/19/09 05/08/23 Jeffery Beal MD [address] [place] [address] [place] [address] PCP - General Family Medicine 05/09/23 Shanna Camacho MD [address] [place] [address] [address] [place], [place] [id number] Referring Physician Endocrinology Diabetes & Metabolism 03/27/18 Juan Rivera MD [address] [place] [address] [address] [place], [place] [id number] Medical Oncologist/Hematologis t Medical Oncology 03/27/18 documented as of this encounter
--- OUTSIDE RECORDS SUMMARY | 2024-08-02 14:19 | XMS_ITS | Encounter Summary ---
Author Organization [facility] Address [address] [place] [address] Phone Care Team Providers Care Dope House Operator Helper Name Role Phone Gumaro Thomason MD Primary Care Provider [phone] Shanna Camacho MD Unavailable Juan Rivera MD Unavailable Jeffery Beal MD Primary Care Provider [phone] Encounter Details Date Type Department Care Team (Latest Contact Info) Description 11/02/2018 Orders Only [facility] Scanning, Provider Social History Tobacco Use Types Packs/Day Years Used Date Smoking Tobacco: Never Smokeless Tobacco: Never Alcohol Use Standard Drinks/Week Comments No 0 (1 standard drink = 0.6 oz pur e alcohol) Comments Unknown Sex and Gender Information Value Date Recorded Sex Assigned at Not on file 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 Gender Identity Not on file Sexual Orientation Not on file documented as of this encounter Plan of Treatment Not on file documented as of this encounter Procedures Procedure Name Priority Date/Time Associated Diagnosis Comments SCAN - RADIOLOGY/IMAGING 11/02/2018 documented in this encounter Results * SCAN - RADIOLOGY/IMAGING (11/02/2018) Anatomical Region Laterality Modality Other us Provider Scanning Edited Result - Final documented in this encounter Visit Diagnoses Not on filedocumented in this encounter Care Teams Dope House Operator Helper Relationship Specialty Start Date End Date Gumaro Thomason MD [address] [place] [address] PCP - General 06/19/09 05/08/23 Jeffery Beal MD [address] [place] [address] [place] [address] PCP - General Family Medicine 05/09/23 Shanna Camacho MD [address] [place] [address] [address] [place], [place] [id number] Referring Physician Endocrinology Diabetes & Metabolism 03/27/18 Juan Rivera MD [address] [facility] [address] [address] [place], [place] [id number] Medical Oncologist/Hematologis t Medical Oncology 03/27/18 documented as of this encounter
[2024-08-02 16:03] LABS: Kit Draw Collected
== END 2024-08-02 13:14 | disposition home or self-care (01) ==
LOC: ANHGOSHLAB 13:14
PROVIDERS: PCP Family Medicine; Visit Provider Family Medicine
DX: E51.9 Thiamine deficiency, unspecified (principal); R73.09 Other abnormal glucose; R94.6 Abnormal results of thyroid function studies; D53.9 Nutritional anemia, unspecified; R53.83 Other fatigue; R70.0 Elevated erythrocyte sedimentation rate; D51.3 Other dietary vitamin B12 deficiency anemia; R68.89 Other general symptoms and signs; D46.9 Myelodysplastic syndrome, unspecified; R74.8 Abnormal levels of other serum enzymes; R63.4 Abnormal weight loss; E61.8 Deficiency of other specified nutrient elements
CPT/HCPCS: 36415